=== PATIENT | female | born 1980 | race Caucasian/White ===

== ENCOUNTER 2016-12-28 07:22 | Emergency (ER) | payer MEDICARE, OTHER ==
--- NOTE | ~2016-12-28 | CR230 ---
[facility] A Service of [facility] & [facility] RADIOLOGY TEXT RESULTS PATIENT: AIDA ODOM LOCATION: SED : 82 UNIT #: [id number] AGE: [address]: Kaden Duarte MD SEX: F ORDER DR: [id number] [place] [id number] E MR#: [id number] Acc #: [id number] NAME: AIDA ODOM : 1980 SEX: F STUDY DATE/TIME: 12/28/2016 7:01 UNIT: SED ROOM: STUDY DESCRIPTION: CR Shoulder Min 2 View Rt Attending Physician: Kaden Duarte M.D. Ordering Physician: Kaden Duarte M.D. Primary Care Physician: Formerly [facility], [facility] MEDICAL IMAGING REPORT This report is preliminary unless electronic signature is present. EXAM Right shoulder 3 views HISTORY Pain after injury today. FINDINGS There is mild acromioclavicular degenerative change but no acute abnormality. Dictated by... Tyron Tuttle M.D. THIS IS AN ELECTRONICALLY VERIFIED REPORT Tyron Tuttle M.D. at 12/28/2016 3:52 PM MOHIT/bentley TD: 12/28/2016 08:04 JOB #: [id number] MEDICAL IMAGING REPORT Page 1 of 1
[~2016-12-28 07:22] MED LIST: BACTRIM 400-801 TA1; BENZONATATE PO; GLIPIZIDE10 MG PO; GLUCOPHAGE500 MG; KEFLEX500 MG; KLONOPIN0.5 MG PO; LITHATE20 MG PO; METFORMIN PO; MOTRIN PO; MOTRIN400 M1 PO; NO MEDICATIONS; PREDNISONE PO; SEROQUEL300 MG PO; VOLTAREN75 MG PO; ZYRTEC PO
== END 2016-12-28 08:10 | disposition home or self-care (01) ==
LOC: SED 07:22
DX: S46.811A Strain of other muscles, fascia and tendons at shoulder and upper arm level, right arm, initial encounter (principal); E11.9 Type 2 diabetes mellitus without complications; F17.210 Nicotine dependence, cigarettes, uncomplicated; X58.XXXA Exposure to other specified factors, initial encounter; Y92.89 Other specified places as the place of occurrence of the external cause
CPT/HCPCS: 73030; 99283

== ENCOUNTER 2017-02-28 22:25 | Emergency (ER) | payer MEDICARE ==
[2017-02-28] MEDS ORDERED: [UNRECOGNIZED DRUG - OTHER] (22:58)
[2017-02-28] MEDS ORDERED: METFORMIN (22:58)
== END 2017-02-28 23:31 | disposition home or self-care (01) ==
LOC: SED 22:25
DX: S80.861A Insect bite (nonvenomous), right lower leg, initial encounter (principal); F41.9 Anxiety disorder, unspecified; F31.9 Bipolar disorder, unspecified; F17.200 Nicotine dependence, unspecified, uncomplicated; W57.XXXA Bitten or stung by nonvenomous insect and other nonvenomous arthropods, initial encounter
CPT/HCPCS: 99281

== ENCOUNTER 2017-03-18 19:22 | Emergency (ER) | payer MEDICARE ==
[~2017-03-18 19:22] MED LIST changes: +METFORMIN; +[UNRECOGNIZED DRUG - OTHER]
== END 2017-03-18 21:11 | disposition home or self-care (01) ==
LOC: SED 19:22
DX: L02.415 Cutaneous abscess of right lower limb (principal); E11.9 Type 2 diabetes mellitus without complications; Z88.5 Allergy status to narcotic agent; Z79.84 Long term (current) use of oral hypoglycemic drugs; F17.200 Nicotine dependence, unspecified, uncomplicated
CPT/HCPCS: 87070; 87205; 99283